=== PATIENT | male | born 1955 | race Caucasian/White ===

== ENCOUNTER 2017-07-08 10:20 | Emergency (ER) | payer MEDICARE ==
[~2017-07-08] VITALS: Ht 182.9 cm; Wt 65.8 kg
[~2017-07-08 10:20] MED LIST: GABAPENTIN800 MG PO; MUSCLE RELAXER
[2017-07-08] MEDS ORDERED: IBUPROFEN 600 MG TAB PO STA (10:42)
--- NOTE | 2017-07-08 11:43 | Diagnostic Imaging Report ---
PROCEDURE:X-RAY LEFT SHOULDER, COMPLETE COMPARISON:None. INDICATIONS:FALL FINDINGS:There is a mildly displaced fracture of the clavicular head. There is also ill-defined lucency in the mid left clavicle without cortical disruption likely artifact. There are mild degenerative changes of the a.c. and glenohumeral joints. CONCLUSION: Mildly displaced fracture of the left clavicular head. Alisha Kapadia M.D. Dictated by: Alisha Kapadia M.D. on 07/08/2017 at 11:45 Electronically approved by: Alisha Kapadia M.D. on 07/08/2017 at 11:45
== END 2017-07-08 12:10 | disposition home or self-care (01) ==
LOC: ER 10:20
DX: S42.035A Nondisplaced fracture of lateral end of left clavicle, initial encounter for closed fracture (principal); S40.012A Contusion of left shoulder, initial encounter; W18.39XA Other fall on same level, initial encounter; Y92.008 Other place in unspecified non-institutional (private) residence as the place of occurrence of the external cause
CPT/HCPCS: 99284

== ENCOUNTER → 2017-09-16 | Outpatient (CLI) | payer MEDICARE, OTHER ==
--- NOTE | 2017-09-16 13:47 | Diagnostic Imaging Report ---
EXAM: Scrotal Ultrasound with Duplex INDICATION: \S\SPERMATOCELE OF EPIDIDYMITIS COMPARISON: Scrotal ultrasound dated 02/19/2011 TECHNIQUE: Transverse and longitudinal images were obtained of the scrotum with grayscale imaging, color Doppler and spectral waveform analysis. FINDINGS: Right testis: Size: 3.1 x 2.6 x 2.8 cm, normal in size. Echogenicity: Normal Mass/Cysts: None Left testis: Size: 3.6 x 2.5 x 2.3 cm, normal in size. Echogenicity: Normal Mass/Cysts: None Epididymis: Appearance: Normal in size without increased vascularity. Mass/Cysts: Right 0.7 cm and 0.3 cm epididymal head cyst/spermatoceles. On prior exam there were 2 right epididymal head cysts measuring 1.1 cm and 0.4 cm. 1.8 x 1.3 x 1.2 cm left epididymal head cyst/spermatocele, previously 1.6 x 1 x 0.9 cm. The other previously noted 1.2 x 1.2 x 1.3 cm left epididymal head cyst is not visualized on today's exam. Extratesticular: Masses: None Hydrocele: Trace left hydrocele. Varicocele: None Doppler: Normal arterial flow to both testes and symmetrical flow on color Doppler evaluation is seen. No evidence of testicular torsion. IMPRESSION: 1. No evidence of testicular torsion. 2. Bilateral epididymal head cysts/spermatoceles, the largest on the left side measuring 1.8 cm. 3. Trace left hydrocele. Signed by: Dr. Tom Byrd MD on 09/16/2017 1:44 PM
== END ==
LOC: US 12:18
PROVIDERS: ATTEND Urology
DX: N43.40 Spermatocele of epididymis, unspecified (principal)
CPT/HCPCS: 76870; 93976

== ENCOUNTER → 2019-09-15 | Day surgery (SDC) | payer MEDICARE ==
[2019-09-10 10:03] LABS: BASOPHILS # (AUTO) 0.1 (0.0-0.1); BASOPHILS % 0.9 % (0.0-1.0); EOSINOPHILS # (AUTO) 0.2 (0.0-0.4); EOSINOPHILS % 3.6 % (0.0-6.0); HEMATOCRIT 38.4 % (38.2-49.6); HEMOGLOBIN 12.6 g/dL (14.0-18.0); LYMPHOCYTES # (AUTO) 2.2 (1.0-3.2); LYMPHOCYTES % 38.3 % (18.0-39.1); MEAN CORPUSCULAR HEMOGLOBIN 30.6 pg (28-32); MEAN CORPUSCULAR HGB CONC 32.8 g/dL (31-35); MEAN CORPUSCULAR VOLUME 93.2 fL (81-99); MONOCYTES # (AUTO) 0.5 (0.2-0.8); MONOCYTES % 9.6 % (4.4-11.3); NEUTROPHILS # (AUTO) 2.6 (2.1-6.9); NEUTROPHILS % 46.4 % (38.7-80.0); PLATELET COUNT 218 x10e3/uL (140-360); RED BLOOD COUNT 4.12 x10e6/uL (4.3-5.7); RED CELL DISTRIBUTION WIDTH 12.7 % (11.7-14.4)
[~2019-09-15] MED LIST changes: +ASPIRIN325 MG PO; +HYDROCODON-ACE1 EA10 PO; +OR PHACO EYE KIT ONE; +PREOP PHACO EYE KIT ONE; +PROPOFOL IV EMULSION 10 MG/ML 20 ML VIAL ONE
[2019-09-15 10:20] VITALS: BP 158/70
== END | disposition home or self-care (01) ==
LOC: OR 07:05
PROVIDERS: ATTEND Internal Medicine Gastroenterology
DX: Z12.11 Encounter for screening for malignant neoplasm of colon (principal); D12.4 Benign neoplasm of descending colon; K29.70 Gastritis, unspecified, without bleeding; K44.9 Diaphragmatic hernia without obstruction or gangrene; K31.89 Other diseases of stomach and duodenum; K22.8 Other specified diseases of esophagus; K64.8 Other hemorrhoids; R19.7 Diarrhea, unspecified; I44.0 Atrioventricular block, first degree; M19.90 Unspecified osteoarthritis, unspecified site; I10 Essential (primary) hypertension; F17.210 Nicotine dependence, cigarettes, uncomplicated; Z88.0 Allergy status to penicillin; Z01.810 Encounter for preprocedural cardiovascular examination; Z01.812 Encounter for preprocedural laboratory examination; Z11.59 Encounter for screening for other viral diseases; Z79.82 Long term (current) use of aspirin; Z95.0 Presence of cardiac pacemaker; Z85.3 Personal history of malignant neoplasm of breast
CPT/HCPCS: 36415; 43239; 43251; 45380; 45384; 85025; 93005; J2704; U0002; 45378

== ENCOUNTER 2020-07-29 09:43 | Emergency (ER) | payer MEDICARE ==
[~2020-07-29] VITALS: Ht 182.9 cm; Wt 65.8 kg
[~2020-07-29 09:43] MED LIST changes: -OR PHACO EYE KIT ONE; -PREOP PHACO EYE KIT ONE; -PROPOFOL IV EMULSION 10 MG/ML 20 ML VIAL ONE
[2020-07-29] MEDS ORDERED: HYDROCODONE/APAP 10MG-325MG TAB PO ONE (14:00)
[2020-07-29 14:01] VITALS: BP 126/42
== END 2020-07-29 14:02 | disposition home or self-care (01) ==
LOC: ER 09:55
DX: M25.562 Pain in left knee (principal); Z85.3 Personal history of malignant neoplasm of breast
CPT/HCPCS: 72110; 99283

== ENCOUNTER 2022-01-14 16:37 | Emergency (ER) | payer MEDICARE, OTHER ==
[~2022-01-14] VITALS: Ht 182.9 cm; Wt 65.8 kg
[2022-01-14 17:49] LABS: CLARITY,URINE CLEAR (CLEAR); COLOR,URINE YELLOW (YELLOW); KETONES,URINE NEGATIVE (NEGATIVE); LEUKOCYTE ESTERASE ,URINE NEGATIVE (NEGATIVE); NITRITE,URINE NEGATIVE (NEGATIVE); PROTEIN,URINE DIPSTICK TRACE (NEGATIVE); URINE UROBILINOGEN 1 mg/dL (0.2 - 1)
[2022-01-14 17:50] LABS: RBC,URINE 0-5 /HPF (0-5); WBC,URINE (MAN) 0-5 /HPF (0-5)
== END 2022-01-14 18:08 | disposition home or self-care (01) ==
LOC: ER 17:14
DX: S39.011A Strain of muscle, fascia and tendon of abdomen, initial encounter (principal); M79.604 Pain in right leg; X58.XXXA Exposure to other specified factors, initial encounter; Z88.0 Allergy status to penicillin; Z91.014 Allergy to mammalian meats; Z85.3 Personal history of malignant neoplasm of breast
CPT/HCPCS: 81001; 99282

== ENCOUNTER → 2022-06-26 | Day surgery (SDC) | payer MEDICARE, OTHER ==
[2022-06-25 12:59] LABS: BASOPHILS # (AUTO) 0.1 (0.0-0.1); BASOPHILS % 0.8 % (0.0-1.0); EOSINOPHILS # (AUTO) 0.4 (0.0-0.4); EOSINOPHILS % 6.5 % (0.0-6.0); HEMATOCRIT 36.4 % (38.2-49.6); HEMOGLOBIN 12.1 g/dL (14.0-18.0); LYMPHOCYTES # (AUTO) 2.4 (1.0-3.2); LYMPHOCYTES % 38.3 % (18.0-39.1); MEAN CORPUSCULAR HEMOGLOBIN 30.7 pg (28-32); MEAN CORPUSCULAR HGB CONC 33.2 g/dL (31-35); MEAN CORPUSCULAR VOLUME 92.4 fL (81-99); MONOCYTES # (AUTO) 0.5 (0.2-0.8); MONOCYTES % 7.9 % (4.4-11.3); NEUTROPHILS # (AUTO) 2.9 (2.1-6.9); NEUTROPHILS % 46.3 % (38.7-80.0); PLATELET COUNT 221 x10e3/uL (140-360); RED BLOOD COUNT 3.94 x10e6/uL (4.3-5.7); RED CELL DISTRIBUTION WIDTH 13.3 % (11.7-14.4)
[~2022-06-26] MED LIST changes: +CYCLOBENZAPRINE10 MG PO; +ELIQUIS5 MG PO; +GLUCAGON FOR INJ 1 MG VIAL ONE; +HYDROCODON-ACE1 EA12 PO; +HYDROCODONE-ACE10 M1; +LACTATED RINGER'S 1,000 ML ONE; +LIDOCAINE HCL 2% LOCAL INJ 5 ML SDV VIAL INJ ONE; +LOSARTAN POTASS25 MG PO; +PANTOPRAZOLE SO40 MG PO; +PROPOFOL IV EMULSION 10 MG/ML 20 ML VIAL ONE
[2022-06-26 09:53] VITALS: BP 127/75
== END | disposition home or self-care (01) ==
LOC: OR 08:06
PROVIDERS: ATTEND Internal Medicine Gastroenterology
DX: K22.70 Barrett's esophagus without dysplasia (principal); K29.50 Unspecified chronic gastritis without bleeding; Q39.6 Congenital diverticulum of esophagus; K44.9 Diaphragmatic hernia without obstruction or gangrene; Z71.3 Dietary counseling and surveillance; I10 Essential (primary) hypertension; I25.10 Atherosclerotic heart disease of native coronary artery without angina pectoris; Z88.0 Allergy status to penicillin; Z91.018 Allergy to other foods; Z01.810 Encounter for preprocedural cardiovascular examination; Z01.812 Encounter for preprocedural laboratory examination; Z79.02 Long term (current) use of antithrombotics/antiplatelets; Z79.82 Long term (current) use of aspirin; Z79.1 Long term (current) use of non-steroidal anti-inflammatories (NSAID); Z79.899 Other long term (current) drug therapy; Z95.0 Presence of cardiac pacemaker; Z85.3 Personal history of malignant neoplasm of breast; Z80.0 Family history of malignant neoplasm of digestive organs
CPT/HCPCS: 36415; 43239; 85025; 88305; 88342; 93005; J1610; J2001; J2704; J7121; 88304; 88312